=== PATIENT | female | born 1980 | race African-American/Black ===

== ENCOUNTER 2016-12-23 10:20 | Emergency (ER) | payer MEDICAID ==
[~2016-12-23] VITALS: Ht 175.3 cm; Wt 77.0 kg
[2016-12-23] MEDS ORDERED: ONDANSETRON HCL 4MG/2ML VIAL IV STA (13:23)
[2016-12-23] MEDS ORDERED: SODIUM CHLORIDE 0.9% 1,000 ML IV ONE (13:23)
[2016-12-23] MEDS ORDERED: ACETAMINOPHEN 500MG TABLET PO ONE (13:30)
[2016-12-23 13:42] LABS: CLARITY URINE CLEAR (CLEAR); COLOR URINE YELLOW (YELLOW); GLUCOSE URINE NEGATIVE (NEGATIVE); KETONES URINE NEGATIVE (NEGATIVE); LEUKOCYTE ESTERASE URINE NEGATIVE (NEGATIVE); NITRITE URINE NEGATIVE (NEGATIVE); OCCULT BLOOD URINE NEGATIVE (NEGATIVE); PROTEIN URINE NEGATIVE (NEGATIVE); SPECIFIC GRAVITY URINE 1.013 (1.005-1.030)
[2016-12-23] MEDS ORDERED: FAMOTIDINE 20MG/2ML VIAL IV ONE (15:00)
[2016-12-23 15:14] LABS: INR 1.1; PROTHROMBIN TIME 11.3 sec (9.4-11.6)
[2016-12-23 15:18] LABS: CHLORIDE 106 mEq/L (98-107)
[2016-12-23 15:21] LABS: BASOPHILS % 0.5 % (0.0-2.0); EOSINOPHILS % 3.6 % (0.0-5.0); HEMATOCRIT. 41.4 % (36.0-48.0); HEMOGLOBIN. 13.7 g/dL (12.0-16.0); LYMPHOCYTES % 34.5 % (20.0-50.0); MEAN CORPUSCULAR HEMOGLOBIN 28.8 pg (28.0-32.0); MEAN CORPUSCULAR VOLUME 86.7 fL (81.0-99.0); MEAN PLATELET VOLUME 9.5 fl (7.4-10.4); MONOCYTES % 10.9 % (2.0-8.0); NEUTROPHILS % 50.5 % (40.0-76.0); PLATELET 210 x1000/uL (130-400); RED BLOOD CELL COUNT 4.77 mill/uL (4.2-5.4); RED CELL DISTRIBUTION WIDTH 14.2 % (11.6-14.6)
[2016-12-23 15:28] LABS: HCG SCREEN POSITIVE
[2016-12-23 15:31] LABS: CARBON DIOXIDE 23 mEq/L (21-32)
[2016-12-23 15:43] LABS: B-HCG QUANTITATIVE 25955 mIU/mL (<3)
[2016-12-23 17:12] VITALS: BP 127/76
== END 2016-12-23 17:21 | disposition home or self-care (01) ==
LOC: ER 10:50
DX: O26.891 Other specified pregnancy related conditions, first trimester (principal); R42 Dizziness and giddiness; R10.30 Lower abdominal pain, unspecified; R07.9 Chest pain, unspecified; R19.7 Diarrhea, unspecified; O21.9 Vomiting of pregnancy, unspecified; Z3A.01 Less than 8 weeks gestation of pregnancy
CPT/HCPCS: 36415; 76801; 76817; 80053; 81003; 83690; 84702; 84703; 85025; 85610; 93005; 96361; 96374; 96375; 99285; J2405; J3490; J7030; Z7610